=== PATIENT | male | born 1960 | race Caucasian/White ===

== ENCOUNTER → 2024-04-24 | Outpatient (CLI) | payer MEDICARE, OTHER, SELFPAY ==
[2024-04-24 17:20] LABS: PSA,Total- Diagnostic 5.32 ng/mL (0.0-4.0)
[2024-04-26 13:06] LABS: PSA, Free 1.24 ng/mL; PSA, Free % 26.3 % (.)
== END | disposition home or self-care (01) ==
PROVIDERS: PCP Family Medicine; Referring Provider Urology; Visit Provider Urology
DX: R97.20 Elevated prostate specific antigen [PSA] (principal)
CPT/HCPCS: 36415; 84153; 84154